=== PATIENT | female | born 1980 | race African-American/Black ===

== ENCOUNTER → 2018-01-24 15:08 | Outpatient (CLI) | payer OTHER, SELFPAY ==
[2018-01-24 15:40] LABS: Add Manual Diff / Slide Review NO; Basophils Percent Auto 1.2 % (0-2); Eosinophils Percent Auto 7.1 % (2-4); Hematocrit 36.5 % (36-46); Hemoglobin 12.1 g/dL (12.0-16.0); Lymphocytes Percent Auto 37.5 % (25-40); Mean Corpuscular Hemoglobin 28.4 PG (26-34); Monocytes Percent Auto 7.3 % (3-14); Neutrophils Absolute Auto 3100 /uL (3000-5900); Neutrophils Percent Auto 46.9 % (50-75); Platelet Count 257 X10^3/uL (150-400); Red Blood Cell Count 4.25 X10^6/uL (4.0-5.2); Red Cell Distribution Width 13.3 % (11.6-14.8); White Blood Cell Count 6.5 X10^3/uL (4.5-11.0)
== END ==
PROVIDERS: PCP Family Medicine; Visit Provider Family Medicine
DX: N97.9 Female infertility, unspecified (principal)
CPT/HCPCS: 36415; 85025

== ENCOUNTER → 2018-04-07 08:50 | Outpatient (CLI) | payer OTHER, SELFPAY ==
[2018-04-07 09:54] LABS: HCG Quantitative /Beta subunit 17.65 mIU/mL
== END ==
PROVIDERS: Family Provider Student in an Organized Health Care Education/Training Program; PCP Family Medicine; Visit Provider Specialist
DX: Z31.9 Encounter for procreative management, unspecified (principal)
CPT/HCPCS: 36415; 84702

== ENCOUNTER → 2018-04-09 12:27 | Outpatient (CLI) | payer OTHER, SELFPAY ==
[2018-04-09 13:34] LABS: HCG Quantitative /Beta subunit 20.92 mIU/mL
== END ==
PROVIDERS: Family Provider Student in an Organized Health Care Education/Training Program; PCP Family Medicine; Visit Provider Specialist
DX: Z31.9 Encounter for procreative management, unspecified (principal)
CPT/HCPCS: 36415; 84702

== ENCOUNTER → 2018-04-12 08:21 | Outpatient (CLI) | payer OTHER, SELFPAY ==
[2018-04-12 10:08] LABS: HCG Quantitative /Beta subunit 2.81 mIU/mL
== END ==
PROVIDERS: PCP Family Medicine; Visit Provider Specialist
DX: N91.2 Amenorrhea, unspecified (principal)
CPT/HCPCS: 84702

== ENCOUNTER → 2018-06-24 11:23 | Outpatient (CLI) | payer OTHER, SELFPAY ==
[2018-06-24 12:07] LABS: Add Manual Diff / Slide Review NO; Basophils Percent Auto 0.6 % (0-2); Eosinophils Percent Auto 5.3 % (2-4); Lymphocytes Percent Auto 27.7 % (25-40); Mean Corpuscular HGB Conc 32.5 % (30-36); Mean Corpuscular Hemoglobin 27.7 PG (26-34); Mean Corpuscular Volume 85.3 fL (80-100); Monocytes Percent Auto 5.5 % (3-14); Neutrophils Absolute Auto 3600 /uL (3000-5900); Neutrophils Percent Auto 60.9 % (50-75); Platelet Count 282 X10^3/uL (150-400); Red Blood Cell Count 4.34 X10^6/uL (4.0-5.2); Red Cell Distribution Width 13.3 % (11.6-14.8); White Blood Cell Count 5.9 X10^3/uL (4.5-11.0)
[2018-06-24 13:35] LABS: Prolactin 23.1 ng/mL (3.0-18.6)
[2018-06-24 15:29] LABS: Hepatitis B Surface Antigen NEGATIVE s/c (NEGATIVE)
[2018-06-24 15:46] LABS: HIV 1 and 2 Antibody NEGATIVE (NEGATIVE); Hep C Virus Ab w/Reflex Quant NEGATIVE s/c (NEGATIVE)
[2018-06-25 14:59] LABS: RPR Screen Nonreactive (Nonreactive)
[2018-06-28 16:56] LABS: B2-Glycoprotein I IgA AB < 9 SAU (< OR = 20); B2-Glycoprotein I IgG AB < 9 SGU (< OR = 20); B2-Glycoprotein I IgM AB < 9 SMU (< OR = 20); Cardiolipin Ab IgA < 11 APL; Cardiolipin Ab IgG < 14 GPL; Cardiolipin Ab IgM < 12 MPL; Phos. Serine AB IgM < 25 U/mL; dRVVT Screen 37 seconds (< OR = 45)
== END ==
PROVIDERS: PCP Family Medicine; Visit Provider Student in an Organized Health Care Education/Training Program
DX: Z11.59 Encounter for screening for other viral diseases (principal); Z13.29 Encounter for screening for other suspected endocrine disorder; Z11.3 Encounter for screening for infections with a predominantly sexual mode of transmission; Z00.00 Encounter for general adult medical examination without abnormal findings; Z31.41 Encounter for fertility testing
CPT/HCPCS: 36415; 82397; 83036; 84146; 84443; 85025; 85613; 86146; 86147; 86148; 86592; 86703; 86803; 87340

== ENCOUNTER → 2018-10-10 07:07 | Outpatient (CLI) | payer OTHER, SELFPAY ==
[2018-10-10 08:01] LABS: HCG Quantitative /Beta subunit 75.33 mIU/mL
== END ==
PROVIDERS: PCP Family Medicine; Visit Provider Student in an Organized Health Care Education/Training Program
DX: Z32.00 Encounter for pregnancy test, result unknown (principal)
CPT/HCPCS: 36415; 84702

== ENCOUNTER → 2018-10-12 07:07 | Outpatient (CLI) | payer OTHER, SELFPAY ==
[2018-10-12 08:01] LABS: HCG Quantitative /Beta subunit 72.48 mIU/mL
[2018-10-12 08:15] LABS: Thyroid Stimulating Hormone 2.01 uIU/mL (0.47-4.68)
== END ==
PROVIDERS: PCP Family Medicine; Visit Provider Student in an Organized Health Care Education/Training Program
DX: Z13.29 Encounter for screening for other suspected endocrine disorder (principal); Z32.00 Encounter for pregnancy test, result unknown; N97.9 Female infertility, unspecified
CPT/HCPCS: 36415; 84443; 84702

== ENCOUNTER → 2018-10-14 12:04 | Outpatient (CLI) | payer OTHER, SELFPAY ==
[2018-10-14 12:57] LABS: HCG Quantitative /Beta subunit 88.27 mIU/mL
== END ==
PROVIDERS: PCP Family Medicine; Visit Provider Student in an Organized Health Care Education/Training Program
DX: Z32.00 Encounter for pregnancy test, result unknown (principal)
CPT/HCPCS: 36415; 84702

== ENCOUNTER → 2018-10-17 07:14 | Outpatient (CLI) | payer OTHER, SELFPAY ==
[2018-10-17 07:58] LABS: HCG Quantitative /Beta subunit 284.94 mIU/mL
== END ==
PROVIDERS: PCP Family Medicine; Visit Provider Student in an Organized Health Care Education/Training Program
DX: Z32.00 Encounter for pregnancy test, result unknown (principal)
CPT/HCPCS: 36415; 84702

== ENCOUNTER → 2018-10-19 17:29 | Outpatient (CLI) | payer OTHER, SELFPAY ==
[2018-10-19 18:14] LABS: HCG Quantitative /Beta subunit 700.35 mIU/mL
== END ==
PROVIDERS: Family Provider Specialist; PCP Family Medicine; Visit Provider Student in an Organized Health Care Education/Training Program
DX: Z32.00 Encounter for pregnancy test, result unknown (principal)
CPT/HCPCS: 36415; 84702

== ENCOUNTER → 2018-10-27 12:34 | Outpatient (CLI) | payer OTHER, SELFPAY ==
[2018-10-27 13:19] LABS: HCG Quantitative /Beta subunit 2855.7 mIU/mL
== END ==
PROVIDERS: PCP Family Medicine; Visit Provider Specialist
DX: O00.90 Unspecified ectopic pregnancy without intrauterine pregnancy (principal)
CPT/HCPCS: 36415; 84702

== ENCOUNTER → 2018-11-04 13:20 | Outpatient (CLI) | payer OTHER, SELFPAY ==
[2018-11-04 13:46] LABS: Add Manual Diff / Slide Review NO; Basophils Absolute Auto 0 /uL (0-100); Basophils Percent Auto 0.6 % (0-2); Eosinophils Absolute Auto 300 /uL (0-450); Hematocrit 36.5 % (36-46); Hemoglobin 11.8 g/dL (12.0-16.0); Lymphocytes Absolute Auto 2200 /uL (1100-4500); Lymphocytes Percent Auto 25.9 % (25-40); Mean Corpuscular HGB Conc 32.2 % (30-36); Mean Corpuscular Hemoglobin 27.4 PG (26-34); Mean Corpuscular Volume 85.1 fL (80-100); Monocytes Absolute Auto 500 /uL (0-900); Monocytes Percent Auto 5.7 % (3-14); Neutrophils Absolute Auto 5500 /uL (1500-7000); Neutrophils Percent Auto 63.8 % (50-75); Platelet Count 320 X10^3/uL (150-400); Red Blood Cell Count 4.29 X10^6/uL (4.0-5.2); Red Cell Distribution Width 13.8 % (11.6-14.8); White Blood Cell Count 8.6 X10^3/uL (4.5-11.0)
[2018-11-04 14:05] LABS: Alanine Aminotransferase 21 IU/L (9-52); Albumin 4.7 g/dL (3.5-5.0); Albumin Globulin Ratio 1.5 (1.0-2.8); Alkaline Phosphatase 68 U/L (38-126); Aspartate Aminotransferase 18 IU/L (14-36); Bilirubin Total 0.4 mg/dL (0.2-1.3); Bilirubin Unconjugated 0.4 mg/dL (0.0-1.1); Globulin 3.2 g/dL (1.7-4.1); HEMOLYSIS < 15 (0-50); Total Protein 7.9 g/dL (6.3-8.2)
[2018-11-04 14:23] LABS: HCG Quantitative /Beta subunit 3195.9 mIU/mL
== END ==
PROVIDERS: PCP Family Medicine; Visit Provider Specialist
DX: O00.90 Unspecified ectopic pregnancy without intrauterine pregnancy (principal)
CPT/HCPCS: 36415; 80076; 84702; 85025

== ENCOUNTER → 2018-11-10 07:08 | Outpatient (CLI) | payer OTHER, SELFPAY ==
[2018-11-10 10:03] LABS: HCG Quantitative /Beta subunit 1377.4 mIU/mL
== END ==
PROVIDERS: PCP Family Medicine; Visit Provider Specialist
DX: O00.90 Unspecified ectopic pregnancy without intrauterine pregnancy (principal)
CPT/HCPCS: 36415; 84702

== ENCOUNTER → 2018-11-18 09:47 | Outpatient (CLI) | payer OTHER, SELFPAY ==
[2018-11-18 11:45] LABS: HCG Quantitative /Beta subunit 333.63 mIU/mL
== END ==
PROVIDERS: PCP Family Medicine; Visit Provider Specialist
DX: O00.90 Unspecified ectopic pregnancy without intrauterine pregnancy (principal)
CPT/HCPCS: 36415; 84702

== ENCOUNTER → 2018-12-02 12:01 | Outpatient (CLI) | payer OTHER, SELFPAY ==
[2018-12-02 13:14] LABS: HCG Quantitative /Beta subunit 171.47 mIU/mL
== END ==
PROVIDERS: PCP Family Medicine; Visit Provider Specialist
DX: O00.90 Unspecified ectopic pregnancy without intrauterine pregnancy (principal)
CPT/HCPCS: 36415; 84702

== ENCOUNTER → 2019-01-04 07:22 | Outpatient (CLI) | payer OTHER, SELFPAY ==
[2019-01-04 09:35] LABS: HCG Quantitative /Beta subunit 48.65 mIU/mL
[2019-01-04 09:39] LABS: Estimated Glomerular Filt Rate > 60.0 mL/min (>60)
[2019-01-04 09:42] LABS: Collection Time Urine 24 Hours; Creatinine Urine Random 157.6 mg/dL; Patient Height Urine 62 inches; Patient Weight Urine 172 lbs; Total Volume Urine 1000 mL
[2019-01-04 11:35] LABS: Creat Clearance, Corrected 132.5 mL/MIN; Creatinine Clearance Urine 136.8 mL/MIN
== END ==
PROVIDERS: PCP Family Medicine; Visit Provider Specialist
DX: O00.90 Unspecified ectopic pregnancy without intrauterine pregnancy (principal); O10.012 Pre-existing essential hypertension complicating pregnancy, second trimester
CPT/HCPCS: 36415; 82565; 82575; 84156; 84166; 84702

== ENCOUNTER → 2019-02-13 17:50 | Outpatient (CLI) | payer OTHER, SELFPAY | PROVIDERS: PCP Family Medicine; Visit Provider Specialist | DX: O03.9 Complete or unspecified spontaneous abortion without complication (principal) | CPT/HCPCS: 36415; 84702 ==

== ENCOUNTER 2019-04-05 16:30 | Emergency (ER) | payer OTHER, SELFPAY ==
[2019-04-05 16:38] VITALS: BP 180/99; PULSE 72; RESP 20; TEMP 37.2; O2SAT 99
--- NOTE | 2019-04-05 17:07 | ED_ITS ---
HPI - Allergic Reaction <WILFREDO Hodge - Last Filed: 04/05/19 20:54> General Chief complaint: Allergic Reaction Stated complaint: possible allergic reaction Time Seen by Provider: 04/05/19 17:02 Source: patient and family Mode of arrival: ambulatory Limitations: no limitations History of Present Illness HPI narrative: 38-year-old female with history of hypertension has a nonsmoker presents with a chief complaint have swelling of her right lower lip and chin. She states she woke up with this morning and applied ice. She states that this helped. After she stepped applying ice it got worse so she came to the emergency department. She has not taken any oral medications. The patient has no history of angioedema, is not taking any Ady inhibitors though she is on beta-blockers for hypertension. She denies any shortness of breath, wheezing, coughing, swelling of the mouth tongue. She states she might have been bit by something as she thinks there might be a bite maki underneath her lip. She denies any dental cleaning some dental issues. She denies any dental pain. Related Data Home Medications Medication Instructions Recorded Confirmed VIT #49/IRON FUM/FA (MINI 1 ea PO #0 09/04/16 10/27/18 TABLET) latanoprost 1 drp OPHTH HS #0 03/31/17 10/27/18 fluticasone propionate 1 spray INTRANASAL #0 11/09/17 10/27/18 Previous Rx's Medication Instructions Recorded albuterol sulfate 90 mcg/actuation 2 inhalation INHALATION Q4H PRN #1 12/23/18 aerosol inhaler inhalation labetalol 100 mg tablet See Rx Instructions PO BID #270 tab 12/23/18 levothyroxine 25 mcg tablet 25 mcg PO QAM #90 tab 12/23/18 phentermine 15 mg capsule 15 mg PO DAILY #30 cap 02/03/19 prednisone 50 mg PO DAILY #5 tab 04/05/19 Allergies Allergy/AdvReac Type Severity Reaction Status Date / Time aspirin [ASPIRIN] Allergy Unknown ulcer prob Verified 10/27/18 12:17 latex [LATEX] Allergy Unknown Verified 10/27/18 12:17 Penicillins [PENICILLINS] Allergy Unknown Verified 10/27/18 12:17 Review of Systems <WILFREDO Hodge - Last Filed: 04/05/19 20:54> Review of Systems Narrative: GENERAL: Denies chills, fatigue, malaise, fever, sweats. HEENT: See HPI RESPIRATORY: Denies dyspnea, cough, wheezing, hemoptysis, sputum. CARDIOVASCULAR: Denies chest pain, palpitations, orthopnea, edema, GASTROINTESTINAL: Denies nausea, vomiting, abdominal pain, diarrhea, constipation, melena. : Denies dysuria, frequency, incontinence, hematuria, urinary retention. MUSCULOSKELETAL: denies weakness, joint pain, or bony pain SKIN: D see HPI NEUROLOGIC: Denies weakness, headache, numbness, change in speech, confusion, seizures, incoordination. PSYCHIATRIC: No concerning psychosocial issues. 12 point review of systems is negative except for those stated above [facility] <WILFREDO Hodge - Last Filed: 04/05/19 20:54> Medical History History of anemia (Resolved) History of asthma (Chronic) History of bipolar disorder (Chronic) History of gastric ulcer (Resolved) History of glaucoma (Chronic) History of scoliosis (Chronic) History of seasonal allergies (Acute) Irritable bowel syndrome with constipation and diarrhea (Chronic) Personality disorder (Chronic) Shoulder pain (Resolved) Surgical History History of third molar tooth extraction (Resolved) Status post dilation and curettage (Resolved) Status post laparoscopy (Resolved) Family History Father Heart disease Hypertension Stroke Mother Age: 66 Anemia Grandmother Ovarian cancer Grandfather No problems noted. Grandmother Diabetes mellitus Grandfather No problems noted. Brother Diabetes mellitus Kidney failure Brother No problems noted. Brother No problems noted. Sister No problems noted. Sister No problems noted. Social History marital status: household members: spouse occupational status: employed Smoking Status: Former smoker alcohol intake: current substance use type: marijuana Family History Father Heart disease Hypertension Stroke Mother Age: 66 Anemia Grandmother Ovarian cancer Grandfather No problems noted. Grandmother Diabetes mellitus Grandfather No problems noted. Brother Diabetes mellitus Kidney failure Brother No problems noted. Brother No problems noted. Sister No problems noted. Sister No problems noted. Social History marital status: household members: spouse occupational status: employed Smoking Status: Former smoker alcohol intake: current substance use type: marijuana Exam <WILFREDO Hodge - Last Filed: 04/05/19 20:54> Narrative Exam Narrative: GENERAL: This is a well-nourished, well-developed patient, in no acute distress HEAD: Atraumatic. Normocephalic. No temporal or scalp tenderness. EYES: Pupils equal round and reactive. Extraocular motions intact. No scleral icterus. No injection or drainage. ENT: Nose without bleeding, purulent drainage or septal hematoma. Throat without erythema, tonsillar hypertrophy or exudate. Uvula midline. Airway patent. Slight swelling noted on right half of lower lip, radiating down to chin. NECK: Trachea midline. No JVD or lymphadenopathy. Supple, nontender, no meningeal signs. CARDIOVASCULAR: Regular rate and rhythm without murmurs, gallops, or rubs. RESPIRATORY: Clear to auscultation. Breath sounds equal bilaterally. No wheezes, rales, or rhonchi. No cough. No increased respiratory effort. No accessory muscle use. No stridor. No retractions. GASTROINTESTINAL: Abdomen soft, non-tender, nondistended. No hepato- splenomegaly, or palpable masses. No guarding. EXTREMITIES: No clubbing, cyanosis, or edema. No joint tenderness, effusion, or edema noted. BACK: Nontender without deformity or crepitance. No flank tenderness. NEURO: AOx3. SKIN: Small possible bite maki on distal aspect of right lower lip. No spreading erythema. No obvious exudate. No palpable abscess or fluctuance. Initial Vital Signs Initial Vital Signs: Vital Signs Temperature 99.0 F 04/05/19 16:38 Pulse Rate 72 04/05/19 16:38 Respiratory Rate 20 04/05/19 16:38 Blood Pressure 180/99 H 04/05/19 16:38 Pulse Oximetry 99 04/05/19 16:38 <Marcus Abel DO - Last Filed: 04/07/19 07:30> Initial Vital Signs Initial Vital Signs: Vital Signs Temperature 99.0 F 04/05/19 16:38 Pulse Rate 72 04/05/19 16:38 Respiratory Rate 20 04/05/19 16:38 Blood Pressure 180/99 H 04/05/19 16:38 Pulse Oximetry 99 04/05/19 16:38 Course <JONNY Hodge-BC - Last Filed: 04/05/19 20:54> Orders Ordered: Discontinued Medications Diphenhydramine HCl (Benadryl) 25 mg IV NOW ONE Stop: 04/05/19 17:23 Last Admin: 04/05/19 18:19 Dose: Not Given Documented by: NICOLE Diphenhydramine HCl (Benadryl) 50 mg IM NOW ONE Stop: 04/05/19 18:21 Last Admin: 04/05/19 18:27 Dose: 50 mg Documented by: NICOLE Methylprednisolone (Solu-Medrol 125 Mg Vial) 125 mg IV NOW ONE Stop: 04/05/19 17:23 Last Admin: 04/05/19 18:20 Dose: Not Given Documented by: NICOLE Methylprednisolone (Solu-Medrol 125 Mg Vial) 125 mg IM NOW ONE Stop: 04/05/19 18:21 Last Admin: 04/05/19 18:27 Dose: 125 mg Documented by: NICOLE Vital Signs Vital signs: Vital Signs - 8 hr 04/05/19 16:38 04/05/19 19:48 04/05/19 19:53 Temperature 99.0 F Pulse Rate 72 74 66 Respiratory Rate 20 14 18 Blood Pressure 180/99 H 108/63 Blood Pressure [Left Arm] 143/82 H Pulse Oximetry 99 100 100 <Marcus Abel DO - Last Filed: 04/07/19 07:30> Orders Ordered: Discontinued Medications Diphenhydramine HCl (Benadryl) 25 mg IV NOW ONE Stop: 04/05/19 17:23 Last Admin: 04/05/19 18:19 Dose: Not Given Documented by: NICOLE Diphenhydramine HCl (Benadryl) 50 mg IM NOW ONE Stop: 04/05/19 18:21 Last Admin: 04/05/19 18:27 Dose: 50 mg Documented by: NICOLE Methylprednisolone (Solu-Medrol 125 Mg Vial) 125 mg IV NOW ONE Stop: 04/05/19 17:23 Last Admin: 04/05/19 18:20 Dose: Not Given Documented by: NICOLE Methylprednisolone (Solu-Medrol 125 Mg Vial) 125 mg IM NOW ONE Stop: 04/05/19 18:21 Last Admin: 04/05/19 18:27 Dose: 125 mg Documented by: NICOLE Vital Signs Vital signs: Vital Signs - 8 hr 04/05/19 16:38 04/05/19 19:48 04/05/19 19:53 Temperature 99.0 F Pulse Rate 72 74 66 Respiratory Rate 20 14 18 Blood Pressure 180/99 H 108/63 Blood Pressure [Left Arm] 143/82 H Pulse Oximetry 99 100 100 MDM - Allergic Reaction <JONNY Hodge- - Last Filed: 04/05/19 20:54> MDM Narrative Medical decision making narrative: The patient is a 38-year-old female who comes in with a chief complaint of swelling of her right half of her lower lip that started this morning. She responded well initially to ice. Upon arrival to the emergency department she was in no acute respiratory distress. I did notice a possible bite maki distal to her right lip. She was given Benadryl and Solu- Medrol given the location of this bite maki and subsequent swelling. This improved her swelling greatly. The patient requested to leave. I did place her on a burst of steroids. Encouraged Benadryl use as needed and able. Discussed at length the importance of following up with her PCP. Discussed at length the importance of coming back to emergency department for any acute concerns such as shortness of breath, continued swelling of her lip despite treatment, swelling of her tongue or any acute shortness of breath concerns. Patient states understanding and has no questions or concerns. She states understanding of return precautions as well as follow-up care. Discharge Plan Departure Patient Disposition: Home Clinical Impression: Allergic reaction Qualifiers: Encounter type: initial encounter Qualified Code(s): T78.40XA - Allergy, unspecified, initial encounter Discharge Date/Time: 04/05/19 19:48 Instructions: DI for General Allergic Reactions Activity Restrictions/Additional Instructions: I believe that you had a localized reaction to the bite maki underneath your lip. I have given her a burst of steroids to help keep the swelling down. Please start this tomorrow as he already had steroids today.. I suggest continuing Benadryl and ice. Please come back to the emergency department for any acute concerns such as increased swelling, difficulty breathing swelling of her tongue. Please follow up with primary care provider. Prescriptions: New prednisone 50 mg tablet 50 mg PO DAILY Qty: 5 RF: 0 No Action phentermine 15 mg capsule 15 mg PO DAILY Qty: 30 RF: 1 labetalol 100 mg tablet See Rx Instructions PO BID Qty: 270 RF: 3 levothyroxine [Synthroid] 25 mcg tablet 25 mcg PO QAM Qty: 90 RF: 3 albuterol sulfate [Proventil HFA] 90 mcg/actuation HFA aerosol inhaler 2 inhalation Inhalation Q4H PRN (Reason: shortness of breath or wheezing) Qty: 1 RF: 3 VIT #49/IRON FUM/FA (MINI TABLET) 1 ea PO Qty: 0 RF: 0 latanoprost 0.005 % drops 1 drp OPHTH HS Qty: 0 RF: 0 fluticasone propionate 16 GM spray,suspension 1 spray Intranasal Qty: 0 RF: 0 Referrals: Dodie Maxwell DO [Primary Care Provider] -
--- NOTE | 2019-04-05 18:18 | PC.NURSE ---
Pt moved to room 12. Refusing IV request IM
[2019-04-05] MEDS: methylPREDNISolone 125 MG/2 ML VIAL IM (18:27)
[2019-04-05] MEDS: diphenhydrAMINE 50 MG/ML VIAL IM (18:27)
[2019-04-05 19:48] VITALS: BP 108/63; PULSE 74; RESP 14; O2SAT 100
[2019-04-05 19:53] VITALS: BP 143/82; PULSE 66; RESP 18; O2SAT 100
== END 2019-04-05 19:48 | disposition home or self-care (01) ==
PROVIDERS: Emergency Provider Nurse Practitioner Family; Family Provider Family Medicine; PCP Family Medicine
DX: T78.40XA Allergy, unspecified, initial encounter (principal)
CPT/HCPCS: 96372; 99283; J1200; J2930

== ENCOUNTER → 2019-05-25 07:25 | Outpatient (CLI) | payer OTHER, SELFPAY ==
[2019-05-25 09:29] LABS: Add Manual Diff / Slide Review NO; Basophils Absolute Auto 0 /uL (0-100); Basophils Percent Auto 0.7 % (0-2); Eosinophils Absolute Auto 700 /uL (0-450); Eosinophils Percent Auto 10.8 % (2-4); Hematocrit 36.7 % (36-46); Lymphocytes Absolute Auto 1400 /uL (1100-4500); Lymphocytes Percent Auto 22.2 % (25-40); Mean Corpuscular HGB Conc 32.7 % (30-36); Mean Corpuscular Hemoglobin 27.8 PG (26-34); Monocytes Absolute Auto 300 /uL (0-900); Monocytes Percent Auto 5.1 % (3-14); Neutrophils Absolute Auto 3700 /uL (1500-7000); Neutrophils Percent Auto 61.2 % (50-75); Platelet Count 254 X10^3/uL (150-400); Red Blood Cell Count 4.32 X10^6/uL (4.0-5.2); Red Cell Distribution Width 13.6 % (11.6-14.8); White Blood Cell Count 6.1 X10^3/uL (4.5-11.0)
[2019-05-25 10:04] LABS: Prothrombin Time 11.4 SECONDS (10.1-12.7)
[2019-05-25 10:06] LABS: PTT Partial Thromboplastin Tim 32 SECONDS (26.4-36.2)
[2019-05-25 10:24] LABS: Vitamin D 25 Hydroxy (D3) 35.7 ng/mL (30.0-100.0)
[2019-05-25 10:39] LABS: Thyroid Stimulating Hormone 1.18 uIU/mL (0.47-4.68)
[2019-05-25 10:52] LABS: Hepatitis B Surface Antigen NEGATIVE s/c (NEGATIVE); Rubella Antibody IgG 19.2 IU/mL (>15)
[2019-05-25 10:57] LABS: HIV 1 & 2 Ab/Ag 4th Gen Combo NEGATIVE (NEGATIVE); Hep C Virus Ab w/Reflex Quant NEGATIVE s/c (NEGATIVE)
[2019-05-27 15:19] LABS: Var-Zoster Immunity Screen > or = 1:4
[2019-05-27 19:27] LABS: RPR Screen Nonreactive (Nonreactive)
== END ==
PROVIDERS: PCP Family Medicine; Visit Provider Obstetrics & Gynecology Reproductive Endocrinology
DX: Z30.09 Encounter for other general counseling and advice on contraception (principal); Z11.9 Encounter for screening for infectious and parasitic diseases, unspecified
CPT/HCPCS: 36415; 82306; 82397; 84443; 85025; 85610; 85730; 86592; 86762; 86787; 86803; 86900; 86901; 87340; 87389

== ENCOUNTER → 2019-07-10 09:35 | Outpatient (CLI) | payer OTHER, SELFPAY ==
[2019-07-10 10:14] LABS: Influenza A - CEPHEID Flu A NEGATIVE (NEGATIVE); Influenza B - CEPHEID Flu B NEGATIVE (NEGATIVE)
== END ==
PROVIDERS: PCP Family Medicine; Visit Provider Physician Assistant
DX: R68.89 Other general symptoms and signs (principal)
CPT/HCPCS: 87502

== ENCOUNTER → 2020-03-26 08:31 | Outpatient (CLI) | payer OTHER, SELFPAY ==
[2020-03-26 09:39] LABS: Add Manual Diff / Slide Review NO; Basophils Absolute Auto 0 /uL (0-100); Basophils Percent Auto 0.5 % (0-2); Eosinophils Absolute Auto 700 /uL (0-450); Hematocrit 37.6 % (36-46); Hemoglobin 12.6 g/dL (12.0-16.0); Lymphocytes Absolute Auto 2500 /uL (1100-4500); Lymphocytes Percent Auto 31.5 % (25-40); Mean Corpuscular HGB Conc 33.3 % (30-36); Mean Corpuscular Hemoglobin 28.1 PG (26-34); Mean Corpuscular Volume 84.4 fL (80-100); Monocytes Absolute Auto 400 /uL (0-900); Monocytes Percent Auto 4.9 % (3-14); Neutrophils Absolute Auto 4300 /uL (1500-7000); Neutrophils Percent Auto 54.1 % (50-75); Platelet Count 273 X10^3/uL (150-400); Red Blood Cell Count 4.46 X10^6/uL (4.0-5.2); Red Cell Distribution Width 13.9 % (11.6-14.8); White Blood Cell Count 7.9 X10^3/uL (4.5-11.0)
[2020-03-26 10:21] LABS: Alanine Aminotransferase 15 IU/L (<35); Albumin 4.6 g/dL (3.5-5.0); Albumin Globulin Ratio 1.3 (1.0-2.8); Alkaline Phosphatase 99 U/L (38-126); Aspartate Aminotransferase 23 IU/L (14-36); BUN Creatinine Ratio 11.3 (6-22); Bilirubin Total 0.4 mg/dL (0.2-1.3); Blood Urea Nitrogen 9 mg/dL (7-17); Calcium 9.5 mg/dL (8.4-10.2); Carbon Dioxide 26 mmol/L (22-32); Chloride 105 mmol/L (98-107); Cholesterol 260 mg/dL (140-199); Estimated Glomerular Filt Rate > 60.0 mL/min (>60); Globulin 3.5 g/dL (1.7-4.1); Glucose 108 mg/dL (70-100); HDL Cholesterol 62 mg/dL (40-60); HEMOLYSIS < 15 (0-50); LDL Cholesterol Calculated 178 mg/dL (<100); Potassium 4.5 mmol/L (3.4-5.1); Sodium 137 mmol/L (137-145); Total Protein 8.1 g/dL (6.3-8.2); Triglycerides 99 mg/dL (35-150)
[2020-03-26 10:49] LABS: Thyroid Stimulating Hormone 3.54 uIU/mL (0.47-4.68)
[2020-03-26 11:04] LABS: Microalbumin Urine Random < 0.6 mg/dL (0-1.6)
== END ==
PROVIDERS: PCP Family Medicine; Referring Provider Family Medicine; Visit Provider Family Medicine
DX: Z13.220 Encounter for screening for lipoid disorders (principal); E03.9 Hypothyroidism, unspecified; I10 Essential (primary) hypertension
CPT/HCPCS: 36415; 80053; 80061; 82043; 82570; 84443; 85025

== ENCOUNTER → 2020-04-20 15:04 | Outpatient (CLI) | payer OTHER, SELFPAY ==
--- NOTE | 2020-04-20 15:05 | DI.MG.S_ITS ---
BILATERAL DIGITAL SCREENING MAMMOGRAM 3D/2D WITH CAD: 04/20/2020 CLINICAL: Routine screening. Comparison is made to exams dated: 09/13/2014 mammogram and 08/27/2014 mammogram - [facility]. There are scattered fibroglandular elements in both breasts. Current study was also evaluated with a Computer Aided Detection (CAD) system. No significant masses, calcifications, or other findings are seen in either breast. There has been no significant interval change. IMPRESSION: NEGATIVE There is no mammographic evidence of malignancy. A 1 year screening mammogram is recommended. This exam was interpreted at Station ID: [id number]. NOTE: For mammograms, a report in lay terms will be sent to the patient. Approximately 15% of breast malignancies will not be visualized mammographically. In the management of a palpable breast mass, a negative mammogram must not discourage biopsy of a clinically suspicious lesion. Electronically Signed By: Edu savage/genoveva:04/22/2020 10:03:58 letter sent: Normal Exam ACR BI-RADS Category 1: Negative [id number]
--- NOTE | 2020-04-20 15:06 | DI.RAD.S_ITS ---
PROCEDURE: XR CHEST 2V INDICATIONS: Asthma TECHNIQUE: 2 views of the chest were acquired. COMPARISON: None. FINDINGS: Surgical changes and devices: None. Lungs and pleura: Lungs are clear. No pleural effusions or pneumothorax. Mediastinum: Mediastinal contours are normal. Heart size is normal. Bones and chest wall: No suspicious bony abnormalities. Soft tissues appear unremarkable. IMPRESSION: No acute cardiopulmonary abnormality. Dictated by: Reynaldo Finley M.D. on 04/20/2020 at 16:20 Approved by: Reynaldo Finley M.D. on 04/20/2020 at 16:21
== END ==
PROVIDERS: PCP Family Medicine; Referring Provider Family Medicine; Visit Provider Family Medicine
DX: Z12.31 Encounter for screening mammogram for malignant neoplasm of breast (principal); J45.909 Unspecified asthma, uncomplicated
CPT/HCPCS: 71046; 77063; 77067

== ENCOUNTER → 2020-06-26 07:56 | Outpatient (CLI) | payer OTHER, SELFPAY ==
[2020-06-26 08:41] LABS: BUN Creatinine Ratio 23.9 (6-22); Blood Urea Nitrogen 16 mg/dL (7-17); Calcium 9.6 mg/dL (8.4-10.2); Carbon Dioxide 23 mmol/L (22-32); Chloride 105 mmol/L (98-107); Estimated Glomerular Filt Rate > 60.0 mL/min (>60); Glucose 127 mg/dL (70-100); HEMOLYSIS < 15 (0-50); Potassium 4.1 mmol/L (3.4-5.1); Sodium 135 mmol/L (137-145)
[2020-06-26 09:22] LABS: TSH w/ Reflex to FT4 0.87 uIU/mL (0.47-4.68)
== END ==
PROVIDERS: PCP Family Medicine; Referring Provider Family Medicine; Visit Provider Family Medicine
DX: E03.9 Hypothyroidism, unspecified (principal); R73.9 Hyperglycemia, unspecified
CPT/HCPCS: 36415; 80048; 84443

== ENCOUNTER → 2020-06-28 09:10 | Outpatient (CLI) | payer OTHER, SELFPAY ==
[2020-06-28 10:00] LABS: Hemoglobin A1C% w Est Avg Glu 5.2 % (4.0-6.0)
== END ==
PROVIDERS: PCP Family Medicine; Referring Provider Family Medicine; Visit Provider Family Medicine
DX: R73.9 Hyperglycemia, unspecified (principal)
CPT/HCPCS: 36415; 83036

== ENCOUNTER → 2020-10-04 09:17 | Outpatient (CLI) | payer OTHER, SELFPAY ==
[2020-10-04] MEDS: COVID-19 VACC #1, MRNA(MOD) 100 MCG/0.5 ML VIAL IM (09:23)
== END ==
PROVIDERS: PCP Family Medicine; Visit Provider Internal Medicine
DX: Z23 Encounter for immunization (principal)
CPT/HCPCS: 0011A; 91301

== ENCOUNTER → 2020-11-01 09:02 | Outpatient (CLI) | payer OTHER, SELFPAY ==
[2020-11-01] MEDS: COVID-19 VACC #2, MRNA(MOD) 100 MCG/0.5 ML VIAL IM (09:08)
== END ==
PROVIDERS: PCP Family Medicine; Visit Provider Internal Medicine
DX: Z23 Encounter for immunization (principal)
CPT/HCPCS: 0012A; 91301

== ENCOUNTER → 2020-11-09 15:07 | Outpatient (CLI) | payer OTHER, SELFPAY ==
--- NOTE | 2020-11-09 15:08 | DI.MRI.S_ITS ---
PROCEDURE: MR CERVICAL SPINE WO CON INDICATIONS: Radiculopathy, cervical region TECHNIQUE: Noncontrast sagittal T1 spin echo and T2 fast spin echo, sagittal STIR, foraminal oblique sagittal T2 fast spin echo, and axial gradient echo or T2 fast spin echo through the cervical spine. COMPARISON: None. FINDINGS: Image quality: Excellent. Alignment and Curvature: Straightening of the usual cervical lordosis. Otherwise normal alignment. Normal configuration of the craniocervical junction. Vertebral body heights maintained. Bone Marrow: No suspicious focal marrow signal abnormality or bone marrow edema. Spinal Cord: Normal morphology and signal intensity of the cervical cord. There is no syrinx. No inferior cerebellar tonsillar herniation. Regional Soft Tissues: No paravertebral masses. Prevertebral soft tissues are normal in thickness. C2-C3: No spinal canal or neural foraminal stenosis. C3-C4: Uncovertebral spurring contributes to mild neural foraminal narrowing on the right. No spinal canal stenosis or neural foraminal narrowing on the left. C4-C5: Facet and uncovertebral hypertrophy produce mild bilateral neural foraminal narrowing. No spinal canal stenosis. C5-C6: Facet and uncovertebral hypertrophy produce moderate bilateral neural foraminal narrowing. No spinal canal stenosis. C6-C7: No spinal canal or neural foraminal stenosis. C7-T1: No spinal canal or neural foraminal stenosis. IMPRESSION: Facet and uncovertebral hypertrophy produce varying degrees of neural foraminal narrowing, moderate bilaterally at C5-C6. Dictated by: Ubaldo Jaramillo M.D. on 11/11/2020 at 9:36 Approved by: Ubaldo Jaramillo M.D. on 11/11/2020 at 9:44
== END ==
PROVIDERS: PCP Family Medicine; Referring Provider Orthopaedic Surgery; Visit Provider Orthopaedic Surgery
DX: M54.12 Radiculopathy, cervical region (principal); M48.02 Spinal stenosis, cervical region
CPT/HCPCS: 72141

== ENCOUNTER → 2021-06-25 09:24 | Outpatient (CLI) | payer OTHER, SELFPAY ==
[2021-06-25 13:04] LABS: COVID19 -Nasal RAPID Negative (Negative)
== END ==
PROVIDERS: PCP Family Medicine; Referring Provider Physician Assistant; Visit Provider Physician Assistant
DX: Z20.822 Contact with and (suspected) exposure to COVID-19 (principal)
CPT/HCPCS: 87635

== ENCOUNTER 2021-06-26 11:05 | Day surgery (SDC) | payer OTHER, SELFPAY ==
[2021-06-23 14:53] VITALS: BMI 25.6
[2021-06-26] VITALS (8 sets, daily range): BP systolic 102–166; BP diastolic 65–89; PULSE 60–79; RESP 14–18; TEMP 36.7–36.9; O2SAT 98–100; BMI 25.6
[2021-06-26] MEDS: LACTATED RINGERS 1,000 ML 84 ML IV (11:54)
--- NOTE | 2021-06-26 12:14 | PM.HP.1 ---
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 Patient History Medical History History of anemia History of asthma History of bipolar disorder History of gastric ulcer History of glaucoma History of scoliosis History of seasonal allergies Irritable bowel syndrome with constipation and diarrhea Personality disorder Shoulder pain Surgical History History of third molar tooth extraction Status post dilation and curettage Status post laparoscopy Family & Social History Family History Father Heart disease Hypertension Stroke Mother Age: 68 Anemia Grandmother Ovarian cancer Grandfather No problems noted. Grandmother Diabetes mellitus Grandfather No problems noted. Brother Diabetes mellitus Kidney failure Brother No problems noted. Brother No problems noted. Sister No problems noted. Sister No problems noted. Social History: household members spouse Tobacco & Substance use: Tobacco type cigarettes Smoking Status Former smoker alcohol intake current Substance Use Type marijuana Meds Home Medications and Allergies Home Medications Medication Instructions Recorded Confirmed Type latanoprost 0.005 % eye drops 1 palomo [facility] HS #0 03/31/17 06/26/21 History labetalol 100 mg tablet 200 mg PO BID #360 tab 03/29/20 06/26/21 Rx levothyroxine 50 mcg tablet 50 mcg PO QAM #90 tab 10/18/20 06/26/21 Rx albuterol sulfate 90 mcg/actuation 2 puff INHALATION Q6H PRN #18 g 06/26/21 Rx aerosol inhaler (ProAir HFA) fluticasone propionate 220 2 puff INHALATION BID #12 gram 06/26/21 Rx mcg/actuation HFA aerosol inhaler (Flovent HFA) Allergies Allergy/AdvReac Type Severity Reaction Status Date / Time latex [LATEX] Allergy Mild Rash, Verified 06/26/21 11:30 hives, itching Penicillins [PENICILLINS] Allergy Mild Rash, Verified 06/26/21 11:30 hives, itching aspirin [ASPIRIN] AdvReac Intermediate GI Verified 06/26/21 11:30 Distress, pain tramadol AdvReac Intermediate Shortness Verified 06/26/21 11:30 of Breath Exam Vital Signs (past 8 hours): - 06/26/21 11:33 Temperature 98.4 F Pulse Rate 64 Respiratory Rate 15 Blood Pressure 136/82 Pulse Oximetry 99 Oxygen Delivery Method Room Air Narrative Exam Narrative: Significant instability to the right thumb MCP joint ulnar collateral ligament. Normal stability to the radial collateral ligament. Patient still has full flexion and extension at the MCP joint and normal range of motion at the basal joint with no sign of any basal joint arthritic changes. 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 Due to this patient is interested in reconstruction of the ulnar collateral ligament. Patient understands the risks and potential limitations in regards to surgery. All of her questions and concerns were answered to her full satisfaction. The risk, benefits, alternatives, possible complications, operative course, and postop outcomes were discussed. Complications including but not limiting to bleeding, infection, fracture, nerve injury, continued pain postoperatively or instability postoperatively were discussed in detail. Medical complications including but not limited to deep venous thrombosis event, anesthesia complications with excessive bleeding, vascular events or cardiac events and other possible complications were discussed in detail. Need for postoperative rehabilitation and anticipated hospital stay and clinical course were discussed in detail. Patient acknowledges understanding and elects to proceed with surgery. Time Spent With Patient Critical Care time: I spent a total of [] minutes of critical care time on this patient's care today; this time is exclusive of procedural time.
--- NOTE | 2021-06-26 12:16 | PM.PREOP ---
Pre-operative Note Interval Note History & Physical reviewed/Exam performed by Physician: Yes Changes to H&P: No
[2021-06-26] MEDS: CEFAZOLIN 2 GM/20 ML SYRINGE IV (13:08)
--- NOTE | 2021-06-26 13:21 | SUR.OPER ---
Supine on padded OR bed, head on pillow, left arm secured on padded arm boards at <90 degrees abduction, right arm draped free on black hand table legs uncrossed, safety belt at thigh, tape over blanket over lower legs.
[2021-06-26] MEDS: BUPIVACAINE 0.5% (PF) 30 ML, EPINEPHrine 0.15 MG INJ (13:35)
--- NOTE | 2021-06-26 14:24 | P.OP_ITS ---
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 No sign of any significant arthritic changes to the glenohumeral joint. Closure Type: primary Applied: implant(s) (Two Arthrex tenodesis anchors) Estimated Blood Loss (mL): 0 Blood products transfused: none Tourniquet time (min): 57 Procedure in detail: On date of Service, patient was met in the holding area where his operative site was signed and witnessed by the OR staff. The surgery is once again discussed with the patient in remaining questions or concerns he had were answered to his full satisfaction. Patient was taken back to the operating theater and placed on the operating table in a supine position. Great care was taken to ensure that all bony prominences were appropriately padded. Well-padded tourniquet was placed up along the upper extremity and a time-out was performed verifying patient's name, procedure and operative site. The upper extremity was prepped and draped in the normal sterile fashion. And Esmarch was used to exsanguinate the limb and the tourniquet was turned up to 250 mmHg. Curvilinear incision was made centered over the ulnar aspect of the MCP joint. A 15 blade was used incise the skin and fascial tissue. Bipolar electrocautery was used to achieve hemostasis. Deep knife was then used to continued sharp dissection and the aponeurosis was split giving us a good visualization of the ulnar collateral ligament. No real signs of any healthy ulnar collateral ligament tissue to use for any reliable repair. Signs of some pseudo tendinous material. This was sharply dissected free of the proximal phalanx in the thinner more unhealthy tissue was sharply excised. Due to the lack of any ulnar collateral ligament tissue, a autograft was used. Small incision was made at the wrist crease and the palmaris longus was exposed. A 2nd small incision was made mid forearm finding palmaris longus again. Palmaris longus was excised at the proximal incision pulled through the distal incision and then released there giving us quite a bit tendon material for the ulnar co llateral ligament reconstruction. Two drill holes were made 1 in the proximal phalanx 1 in the metacarpal. Suture material as well as the tendon graft was tenodesed 1st in the metacarpal brought across the joint and then tenodesed in the proximal phalanx under tension. This help reconstruct the ulnar collateral ligament and the suture material added a additional stability. This got rid of the excess laxity to the MCP joint and help stabilize the joint. The wound was then copiously irrigated. Aponeurosis was closed in the rest of the wound was closed in a layered fashion. The hand was cleaned, dried, and dressed and patient was placed into a splint. Complications: none Post-operative Condition: stable Disposition: PACU Plan for aftercare: Patient will be converted over to a hand based splint that will just immobilize the MCP joint. MCP joint will need to be protected for 6 weeks.
== END 2021-06-26 15:05 | disposition home or self-care (01) ==
PROVIDERS: PCP Family Medicine; Referring Provider Orthopaedic Surgery; Visit Provider Orthopaedic Surgery
PROC: (CPT 26540; principal; 2021-06-26 12:30)
DX: S53.31XA Traumatic rupture of right ulnar collateral ligament, initial encounter (principal); I10 Essential (primary) hypertension; E03.9 Hypothyroidism, unspecified; J45.909 Unspecified asthma, uncomplicated
CPT/HCPCS: 26541; J0171; J0690; J1100; J1885; J2250; J2405; J2704; J3010

== ENCOUNTER → 2021-09-08 13:59 | Outpatient (CLI) | payer OTHER, SELFPAY ==
[2021-09-08 16:21] LABS: COVID-19 CEPHEID PCR (VTM/NP) Negative (Negative)
== END ==
PROVIDERS: PCP Family Medicine; Visit Provider Family Medicine Sleep Medicine
DX: Z20.822 Contact with and (suspected) exposure to COVID-19 (principal)
CPT/HCPCS: C9803; U0003; U0005

== ENCOUNTER → 2022-02-03 16:31 | Outpatient (CLI) | payer OTHER, SELFPAY ==
[2022-02-03 17:33] LABS: Add Manual Diff / Slide Review NO; Basophils Absolute Auto 0 /uL (0-100); Basophils Percent Auto 0.7 % (0-2); Eosinophils Absolute Auto 400 /uL (0-450); Eosinophils Percent Auto 8.7 % (2-4); Hemoglobin 12.7 g/dL (12.0-16.0); Lymphocytes Absolute Auto 1800 /uL (1100-4500); Mean Corpuscular HGB Conc 33.5 % (30-36); Mean Corpuscular Hemoglobin 28.7 PG (26-34); Mean Corpuscular Volume 85.6 fL (80-100); Monocytes Absolute Auto 200 /uL (0-900); Monocytes Percent Auto 4.7 % (3-14); Neutrophils Absolute Auto 2300 /uL (1500-7000); Neutrophils Percent Auto 47.9 % (50-75); Platelet Count 270 X10^3/uL (150-400); Red Blood Cell Count 4.44 X10^6/uL (4.0-5.2); Red Cell Distribution Width 12.9 % (11.6-14.8); White Blood Cell Count 4.8 X10^3/uL (4.5-11.0)
[2022-02-03 18:38] LABS: Alanine Aminotransferase 13 IU/L (<35); Albumin 5.1 g/dL (3.5-5.0); Albumin Globulin Ratio 1.4 (1.0-2.8); Alkaline Phosphatase 82 U/L (38-126); Aspartate Aminotransferase 32 IU/L (14-36); BUN Creatinine Ratio 14.1 (6-22); Bilirubin Total 0.6 mg/dL (0.2-1.3); Blood Urea Nitrogen 11 mg/dL (7-17); Calcium 9.2 mg/dL (8.4-10.2); Carbon Dioxide 30 mmol/L (22-32); Chloride 100 mmol/L (98-107); Cholesterol 285 mg/dL (140-199); Estimated Glomerular Filt Rate > 60 mL/min (>60); Globulin 3.7 g/dL (1.7-4.1); Glucose 100 mg/dL (70-100); HDL Cholesterol 56 mg/dL (40-60); HEMOLYSIS 48 (0-50); LDL Cholesterol Calculated 216 mg/dL (<100); Potassium 4.4 mmol/L (3.4-5.1); Sodium 137 mmol/L (137-145); Total Protein 8.8 g/dL (6.3-8.2); Triglycerides 65 mg/dL (35-150)
[2022-02-03 18:53] LABS: TSH w/ Reflex to FT4 1.39 uIU/mL (0.47-4.68)
== END ==
PROVIDERS: PCP Family Medicine; Referring Provider Family Medicine; Visit Provider Family Medicine
DX: E03.9 Hypothyroidism, unspecified (principal); J45.20 Mild intermittent asthma, uncomplicated; I10 Essential (primary) hypertension; E78.5 Hyperlipidemia, unspecified
CPT/HCPCS: 36415; 80053; 80061; 84443; 85025

== ENCOUNTER → 2022-03-06 14:13 | Outpatient (CLI) | payer OTHER, SELFPAY ==
--- NOTE | 2022-03-06 | DI.MG.S_ITS ---
BILATERAL DIGITAL SCREENING MAMMOGRAM 3D/2D WITH CAD WITH AUGMENTATION: 03/06/2022 CLINICAL: Patient presents for routine screening. S/P bilateral augmentation. Comparison is made to exams dated: 09/13/2014 mammogram - [facility], 04/20/2020 mammogram - [facility], and 08/27/2014 mammogram - [facility]. There are scattered fibroglandular elements in both breasts. Current study was also evaluated with a Computer Aided Detection (CAD) system. Bilateral breast implants are present. There are benign post operative findings in both breasts. No significant masses, calcifications, or other findings are seen in either breast. IMPRESSION: BENIGN There is no mammographic evidence of malignancy. A 1 year screening mammogram is recommended. Based on the Tyrer Cuzick model (a risk assessment model) the patient's lifetime risk is 10.9% and her 10 year risk is 1.6%. According to the ACR, ACS, and NCCN guidelines, an annual breast MRI exam along with mammogram is recommended if the patient's lifetime risk is 20% or greater. This exam was interpreted at Station ID: [id number]. NOTE: For mammograms, a report in lay terms will be sent to the patient. Approximately 15% of breast malignancies will not be visualized mammographically. In the management of a palpable breast mass, a negative mammogram must not discourage biopsy of a clinically suspicious lesion. Electronically Signed By: Long neves/genoveva:03/09/2022 15:21:10 letter sent: Normal Exam ACR BI-RADS Category 2: Benign Finding(s) 3342F
== END ==
PROVIDERS: PCP Family Medicine; Referring Provider Family Medicine; Visit Provider Family Medicine
DX: Z12.31 Encounter for screening mammogram for malignant neoplasm of breast (principal); Z98.82 Breast implant status
CPT/HCPCS: 77063; 77067

== ENCOUNTER → 2022-08-06 15:15 | Outpatient (CLI) | payer OTHER, SELFPAY ==
[2022-08-06 16:56] LABS: Erythrocyte Sedimentation Rate 31 MM/HR (0-20)
[2022-08-06 17:57] LABS: Free T4, Direct Thyroxine 1.21 ng/dL (0.78-2.19); Triiodothryronine T3 Uptake 30.3 % (23.5-40.5)
[2022-08-06 18:15] LABS: Ferritin 46 ng/mL (6-137)
[2022-08-06 18:42] LABS: Thyroid Stimulating Hormone 2.77 uIU/mL (0.47-4.68)
[2022-08-06 19:28] LABS: Vitamin D 25 Hydroxy (D3) 23.7 ng/mL (30.0-100.0)
[2022-08-12 15:11] LABS: ANA Screen, IFA Negative (.)
== END ==
PROVIDERS: PCP Family Medicine; Referring Provider Physician Assistant Medical; Visit Provider Physician Assistant Medical
DX: L65.9 Nonscarring hair loss, unspecified (principal)
CPT/HCPCS: 36415; 82306; 82728; 84439; 84443; 84479; 85651; 86038

== ENCOUNTER → 2022-11-13 07:17 | Outpatient (CLI) | payer OTHER, SELFPAY ==
[2022-11-13 09:16] LABS: Add Manual Diff / Slide Review NO; Basophils Absolute Auto 0 /uL (0-100); Basophils Percent Auto 0.8 % (0-2); Eosinophils Absolute Auto 500 /uL (0-450); Eosinophils Percent Auto 8.5 % (2-4); Hemoglobin 11.6 g/dL (12.0-16.0); Lymphocytes Absolute Auto 1800 /uL (1100-4500); Mean Corpuscular HGB Conc 33.1 % (30-36); Mean Corpuscular Hemoglobin 28.1 PG (26-34); Mean Corpuscular Volume 84.8 fL (80-100); Monocytes Absolute Auto 400 /uL (0-900); Monocytes Percent Auto 5.8 % (3-14); Neutrophils Absolute Auto 3500 /uL (1500-7000); Neutrophils Percent Auto 55.9 % (50-75); Platelet Count 270 X10^3/uL (150-400); Red Blood Cell Count 4.13 X10^6/uL (4.0-5.2); White Blood Cell Count 6.2 X10^3/uL (4.5-11.0)
[2022-11-13 09:38] LABS: Erythrocyte Sedimentation Rate 30 MM/HR (0-20)
[2022-11-13 10:18] LABS: Alanine Aminotransferase 14 IU/L (<35); Albumin 4.4 g/dL (3.5-5.0); Albumin Globulin Ratio 1.5 (1.0-2.8); Alkaline Phosphatase 65 U/L (38-126); Aspartate Aminotransferase 19 IU/L (14-36); BUN Creatinine Ratio 18.4 (6-22); Bilirubin Total 0.5 mg/dL (0.2-1.3); Blood Urea Nitrogen 14 mg/dL (7-17); Calcium 8.9 mg/dL (8.4-10.2); Carbon Dioxide 29 mmol/L (22-32); Chloride 101 mmol/L (98-107); Cholesterol 250 mg/dL (140-199); Estimated Glomerular Filt Rate > 60 mL/min (>60); Globulin 2.9 g/dL (1.7-4.1); Glucose 104 mg/dL (70-100); HDL Cholesterol 52 mg/dL (40-60); HEMOLYSIS < 15 (0-50); LDL Cholesterol Calculated 185 mg/dL (<100); Potassium 4.3 mmol/L (3.4-5.1); Sodium 137 mmol/L (137-145); Total Protein 7.3 g/dL (6.3-8.2); Triglycerides 66 mg/dL (35-150)
== END ==
PROVIDERS: PCP Family Medicine; Referring Provider Physician Assistant; Visit Provider Physician Assistant
DX: E03.9 Hypothyroidism, unspecified (principal); I10 Essential (primary) hypertension; L65.9 Nonscarring hair loss, unspecified; E78.5 Hyperlipidemia, unspecified
CPT/HCPCS: 36415; 80053; 80061; 85025; 85651

== ENCOUNTER → 2023-05-04 09:22 | Outpatient (CLI) | payer OTHER, SELFPAY ==
[2023-05-04 10:15] LABS: Add Manual Diff / Slide Review YES; Hematocrit 36.1 % (36-46); Hemoglobin 12.1 g/dL (12.0-16.0); Mean Corpuscular HGB Conc 33.4 % (30-36); Mean Corpuscular Volume 83.7 fL (80-100); Platelet Count 254 X10^3/uL (150-400); Red Blood Cell Count 4.32 X10^6/uL (4.0-5.2); Red Cell Distribution Width 13.1 % (11.6-14.8); White Blood Cell Count 7.6 X10^3/uL (4.5-11.0)
[2023-05-04 10:43] LABS: Neutrophils Absolute Manual 4332 /uL (3000-5900); RBC Morphology Normal Morphology; Total Cells Counted 100
[2023-05-04 11:19] LABS: Prolactin 22.2 ng/mL (3.0-18.6)
[2023-05-04 11:22] LABS: Follicle Stimulating Hormone 1.73 mIU/mL
[2023-05-04 11:34] LABS: TSH w/ Reflex to FT4 1.17 uIU/mL (0.47-4.68)
== END ==
PROVIDERS: PCP Student in an Organized Health Care Education/Training Program; Referring Provider Student in an Organized Health Care Education/Training Program; Visit Provider Student in an Organized Health Care Education/Training Program
DX: E03.9 Hypothyroidism, unspecified (principal); R23.2 Flushing; R59.1 Generalized enlarged lymph nodes
CPT/HCPCS: 36415; 83001; 84146; 84443; 85007; 85025

== ENCOUNTER → 2023-05-10 10:09 | Outpatient (CLI) | payer OTHER, SELFPAY ==
[2023-05-10 11:26] LABS: Hemoglobin 10.9 g/dL (12.0-16.0); Mean Corpuscular HGB Conc 33.1 % (30-36); Mean Corpuscular Hemoglobin 27.8 PG (26-34); Mean Corpuscular Volume 83.8 fL (80-100); Platelet Count 249 X10^3/uL (150-400); Red Blood Cell Count 3.94 X10^6/uL (4.0-5.2); Red Cell Distribution Width 13.2 % (11.6-14.8)
[2023-05-10 11:30] LABS: HEMOLYSIS < 15 (0-50)
[2023-05-10 11:35] LABS: Alanine Aminotransferase 12 IU/L (<35); Albumin 4.3 g/dL (3.5-5.0); Albumin Globulin Ratio 1.3 (1.0-2.8); Alkaline Phosphatase 67 U/L (38-126); Aspartate Aminotransferase 18 IU/L (14-36); BUN Creatinine Ratio 16.7 (6-22); Bilirubin Total 0.4 mg/dL (0.2-1.3); Blood Urea Nitrogen 13 mg/dL (7-17); Calcium 9.5 mg/dL (8.4-10.2); Carbon Dioxide 26 mmol/L (22-32); Chloride 99 mmol/L (98-107); Estimated Glomerular Filt Rate > 60 mL/min (>60); Globulin 3.3 g/dL (1.7-4.1); Glucose 112 mg/dL (70-100); Potassium 4.5 mmol/L (3.4-5.1); Sodium 135 mmol/L (137-145); Total Protein 7.6 g/dL (6.3-8.2)
[2023-05-10 12:25] LABS: Prolactin 28.5 ng/mL (3.0-18.6)
[2023-05-10 13:19] LABS: Neutrophils Absolute Manual 4550 /uL (3000-5900); Total Cells Counted 100
[2023-05-10 13:20] LABS: RBC Morphology Normal Morphology
== END ==
PROVIDERS: PCP Student in an Organized Health Care Education/Training Program; Referring Provider Student in an Organized Health Care Education/Training Program; Visit Provider Student in an Organized Health Care Education/Training Program
DX: D72.10 Eosinophilia, unspecified (principal); E66.9 Obesity, unspecified; R59.1 Generalized enlarged lymph nodes; R79.89 Other specified abnormal findings of blood chemistry
CPT/HCPCS: 36415; 80053; 84146; 85025

== ENCOUNTER → 2023-05-21 15:36 | Outpatient (CLI) | payer OTHER, SELFPAY ==
--- NOTE | 2023-05-21 15:37 | DI.MRI.S_ITS ---
PROCEDURE: MR BRAIN (PITUITARY) WWO CON INDICATIONS: hyperprolactinemia TECHNIQUE: Noncontrast sagittal and axial FLAIR, axial gradient echo, axial diffusion and ADC through the brain. Thin-slice sagittal and coronal T1 spin echo, coronal T2 fast spin echo through the pituitary. After the administration contrast, optional dynamic coronal T1 spin echo, thin-slice coronal and sagittal T1 spin echo images through the pituitary fossa; axial and coronal and sagittal T1 spin echo with fat saturation through the brain. COMPARISON: None. FINDINGS: Image quality: Excellent. Pituitary Gland: The pituitary gland is normal in size and appearance. No pituitary lesions are identified. The pituitary stalk is midline. CSF Spaces: Ventricles are normal in size and shape. Basal cisterns are patent. No extra-axial fluid collections. Brain: No intracranial bleeds or mass effects. No abnormal intracranial enhancement. Ledbetter-white matter interface is intact. Diffusion weighted images demonstrate no acute ischemic insults. Brainstem is normal. Normal intravascular flow voids are present. Skull and face: Calvarial marrow is normal in signal. Orbits appear normal. Sinuses: Diffuse paranasal sinus mucosal thickening, worse within the right maxillary sinus the mastoid air cells are clear.. IMPRESSION: 1. No pituitary adenomas are identified. The pituitary gland is normal in size and appearance. 2. No acute intracranial abnormalities. Dictated by: Zoran Veloz M.D. on 05/21/2023 at 16:58 Approved by: Zoran Veloz M.D. on 05/21/2023 at 17:01
== END ==
PROVIDERS: PCP Student in an Organized Health Care Education/Training Program; Referring Provider Student in an Organized Health Care Education/Training Program; Visit Provider Student in an Organized Health Care Education/Training Program
DX: R79.89 Other specified abnormal findings of blood chemistry (principal)
CPT/HCPCS: 70553; A9579

== ENCOUNTER → 2023-05-28 12:47 | Outpatient (CLI) | payer OTHER, SELFPAY ==
--- NOTE | 2023-05-28 | DI.MG.S_ITS ---
BILATERAL DIGITAL SCREENING MAMMOGRAM 3D/2D WITH CAD WITH AUGMENTATION: 05/28/2023 CLINICAL: Routine screening. Comparison is made to exams dated: 03/06/2022 mammogram, 04/20/2020 mammogram - [facility], and 09/13/2014 mammogram - [facility]. There are scattered areas of fibroglandular density in both breasts (category b / 25%-50% glandular tissue). Current study was also evaluated with a Computer Aided Detection (CAD) system. Bilateral breast implants are present. There are benign post operative findings in both breasts. No significant masses, calcifications, or other findings are seen in either breast. There has been no significant interval change. IMPRESSION: BENIGN There is no mammographic evidence of malignancy. A 1 year screening mammogram is recommended. Based on the Tyrer Cuzick model (a risk assessment model) the patient's lifetime risk is 10.8% and her 10 year risk is 1.7%. According to the ACR, ACS, and NCCN guidelines, an annual breast MRI exam along with mammogram is recommended if the patient's lifetime risk is 20% or greater. This exam was interpreted at Station ID: [id number]. NOTE: For mammograms, a report in lay terms will be sent to the patient. Approximately 15% of breast malignancies will not be visualized mammographically. In the management of a palpable breast mass, a negative mammogram must not discourage biopsy of a clinically suspicious lesion. Electronically Signed By: Juan Antonio rivera/genoveva:05/28/2023 14:55:35 letter sent: Normal Exam ACR BI-RADS Category 2: Benign Finding(s) 3342F
== END ==
PROVIDERS: PCP Student in an Organized Health Care Education/Training Program; Referring Provider Student in an Organized Health Care Education/Training Program; Visit Provider Student in an Organized Health Care Education/Training Program
DX: Z12.31 Encounter for screening mammogram for malignant neoplasm of breast (principal)
CPT/HCPCS: 77063; 77067

== ENCOUNTER → 2024-01-29 09:24 | Outpatient (CLI) | payer OTHER, SELFPAY ==
[2024-01-29 10:40] LABS: Add Manual Diff / Slide Review NO; Basophils Absolute Auto 0 /uL (0-100); Basophils Percent Auto 0.6 % (0-2); Eosinophils Absolute Auto 500 /uL (0-450); Eosinophils Percent Auto 6.5 % (2-4); Hemoglobin 11.9 g/dL (12.0-16.0); Lymphocytes Absolute Auto 2700 /uL (1100-4500); Lymphocytes Percent Auto 35.3 % (25-40); Mean Corpuscular Hemoglobin 28.1 PG (26-34); Monocytes Absolute Auto 300 /uL (0-900); Monocytes Percent Auto 4.4 % (3-14); Neutrophils Absolute Auto 4100 /uL (1500-7000); Neutrophils Percent Auto 53.2 % (50-75); Platelet Count 305 X10^3/uL (150-400); Red Blood Cell Count 4.24 X10^6/uL (4.0-5.2); Red Cell Distribution Width 13.5 % (11.6-14.8); White Blood Cell Count 7.6 X10^3/uL (4.5-11.0)
[2024-01-29 11:02] LABS: HEMOLYSIS < 15 (0-50)
[2024-01-29 11:07] LABS: Alanine Aminotransferase 12 IU/L (<35); Albumin 4.7 g/dL (3.5-5.0); Albumin Globulin Ratio 1.4 (1.0-2.8); Alkaline Phosphatase 72 U/L (38-126); Aspartate Aminotransferase 20 IU/L (14-36); BUN Creatinine Ratio 23.3 (6-22); Bilirubin Total 0.4 mg/dL (0.2-1.3); Blood Urea Nitrogen 20 mg/dL (7-17); Calcium 9.7 mg/dL (8.4-10.2); Carbon Dioxide 27 mmol/L (22-32); Chloride 105 mmol/L (98-107); Estimated Glomerular Filt Rate > 60 mL/min (>60); Globulin 3.3 g/dL (1.7-4.1); Glucose 101 mg/dL (70-100); Potassium 4.5 mmol/L (3.4-5.1); Sodium 138 mmol/L (137-145)
[2024-01-29 11:11] LABS: Hemoglobin A1C% w Est Avg Glu 5.1 % (4.0-6.0)
[2024-01-29 11:39] LABS: TSH w/ Reflex to FT4 1.74 uIU/mL (0.47-4.68)
[2024-01-29 11:51] LABS: Prolactin 38.3 ng/mL (3.0-18.6)
== END ==
LOC: LAB 09:25
PROVIDERS: PCP Student in an Organized Health Care Education/Training Program; Referring Provider Student in an Organized Health Care Education/Training Program; Visit Provider Student in an Organized Health Care Education/Training Program
DX: E03.9 Hypothyroidism, unspecified (principal); R79.89 Other specified abnormal findings of blood chemistry; E78.5 Hyperlipidemia, unspecified; R63.5 Abnormal weight gain; E66.9 Obesity, unspecified
CPT/HCPCS: 36415; 80053; 83036; 84146; 84443; 85025

== ENCOUNTER → 2024-09-23 08:07 | Outpatient (CLI) | payer BC, SELFPAY ==
[2024-09-23 09:05] LABS: Basophils Absolute Auto 0 /uL (0-100); Basophils Percent Auto 0.3 % (0-2); Eosinophils Absolute Auto 500 /uL (0-450); Eosinophils Percent Auto 7.2 % (2-4); Hemoglobin 11.9 g/dL (12.0-16.0); Lymphocytes Absolute Auto 2200 /uL (1100-4500); Mean Corpuscular HGB Conc 32.9 % (30-36); Mean Corpuscular Hemoglobin 27.7 PG (26-34); Mean Corpuscular Volume 84.2 fL (80-100); Monocytes Absolute Auto 400 /uL (0-900); Monocytes Percent Auto 5.8 % (3-14); Neutrophils Absolute Auto 4400 /uL (1500-7000); Neutrophils Percent Auto 57.7 % (50-75); Platelet Count 256 X10^3/uL (150-400); Red Blood Cell Count 4.28 X10^6/uL (4.0-5.2); Red Cell Distribution Width 13.3 % (11.6-14.8); White Blood Cell Count 7.6 X10^3/uL (4.5-11.0)
[2024-09-23 09:24] LABS: Add Manual Diff / Slide Review SLIDE REVIEW
[2024-09-23 09:55] LABS: BUN Creatinine Ratio 21.1 (6-22); Blood Urea Nitrogen 16 mg/dL (7-17); Cholesterol 242 mg/dL (140-199); Estimated Glomerular Filt Rate > 60 mL/min (>60); HDL Cholesterol 55 mg/dL (40-60); LDL Cholesterol Calculated 174 mg/dL (<100); Triglycerides 65 mg/dL (35-150)
[2024-09-23 10:59] LABS: RBC Morphology Normal Morphology
[2024-09-23 11:16] LABS: Creatinine Urine Random 54.26 mg/dL
[2024-09-23 11:22] LABS: Microalbumin Urine Random < 0.6 mg/dL (0-1.6)
== END ==
PROVIDERS: PCP Student in an Organized Health Care Education/Training Program; Referring Provider Student in an Organized Health Care Education/Training Program; Visit Provider Student in an Organized Health Care Education/Training Program
DX: I10 Essential (primary) hypertension (principal)
CPT/HCPCS: 36415; 80061; 82043; 82565; 82570; 84520; 85025

== ENCOUNTER → 2024-09-30 08:13 | Outpatient (CLI) | payer OTHER, BC, SELFPAY ==
[2024-09-30 09:42] LABS: Hemoglobin A1C% w Est Avg Glu 4.9 % (4.0-6.0)
[2024-09-30 09:49] LABS: Alanine Aminotransferase 16 IU/L (<35); Albumin 4.9 g/dL (3.5-5.0); Albumin Globulin Ratio 1.3 (1.0-2.8); Alkaline Phosphatase 63 U/L (38-126); Aspartate Aminotransferase 31 IU/L (14-36); BUN Creatinine Ratio 14.7 (6-22); Bilirubin Total 0.7 mg/dL (0.2-1.3); Blood Urea Nitrogen 11 mg/dL (7-17); Calcium 9.6 mg/dL (8.4-10.2); Carbon Dioxide 22 mmol/L (22-32); Chloride 102 mmol/L (98-107); Estimated Glomerular Filt Rate > 60 mL/min (>60); Globulin 3.9 g/dL (1.7-4.1); Glucose 117 mg/dL (70-100); Potassium 4.7 mmol/L (3.4-5.1); Sodium 135 mmol/L (137-145); Total Protein 8.8 g/dL (6.3-8.2)
[2024-09-30 09:51] LABS: HEMOLYSIS 52 (0-50)
[2024-09-30 09:53] LABS: HEMOLYSIS < 15 (0-50); Iron 102 ug/dL (37-170)
[2024-09-30 10:03] LABS: Percent Iron Saturation 29 % (15-50); Total Iron Binding Capacity 347 ug/dL (265-497); Transferrin 290 mg/dL (206-381)
[2024-09-30 10:04] LABS: Follicle Stimulating Hormone 1.73 mIU/mL
[2024-09-30 10:07] LABS: Free T3, Triiodothyronine Free 4.03 pg/mL (2.77-5.27); Free T4, Direct Thyroxine 0.92 ng/dL (0.78-2.19)
[2024-09-30 10:20] LABS: Thyroid Stimulating Hormone 2.66 uIU/mL (0.47-4.68)
[2024-09-30 10:22] LABS: Ferritin 52 ng/mL (6-137)
[2024-09-30 10:57] LABS: Folate 15.7 ng/mL (2.76-20.0); Vitamin B12 846 pg/mL (239-931)
== END ==
PROVIDERS: PCP Student in an Organized Health Care Education/Training Program; Referring Provider Student in an Organized Health Care Education/Training Program; Visit Provider Student in an Organized Health Care Education/Training Program
DX: N95.1 Menopausal and female climacteric states (principal)
CPT/HCPCS: 36415; 80053; 82607; 82728; 82746; 83001; 83036; 83540; 83550; 84439; 84443; 84481

== ENCOUNTER → 2024-10-28 07:49 | Outpatient (CLI) | payer BC, SELFPAY ==
[2024-10-28 09:52] LABS: Amylase 68 U/L (30-110); C-Reactive Protein Quant < 0.5 mg/dL (<1.0); Glucose 116 mg/dL (70-100); Lipase 180 U/L (23-300)
== END ==
LOC: LAB 07:51
PROVIDERS: PCP Student in an Organized Health Care Education/Training Program; Referring Provider Student in an Organized Health Care Education/Training Program; Visit Provider Student in an Organized Health Care Education/Training Program
DX: N95.1 Menopausal and female climacteric states (principal)
CPT/HCPCS: 36415; 82150; 82947; 83519; 83690; 86140

== ENCOUNTER 2024-12-21 10:27 | Day surgery (SDC) | payer BC, SELFPAY ==
--- NOTE | 2024-12-21 | PATH_ITS ---
[facility] Accession Number: [id number] No. of containers..01 Tissue . 01 Material submitted: . colon - DESCENDING POLYP . 01 Diagnosis: DESCENDING COLON POLYP: Hyperplastic polyp. MRV 12/27/2024 1403 Local . 01 Electronically signed: . Jason Chu MD, PhD, Pathologist NPI- [id number] . 01 Gross description: . DESCENDING POLYP: Received in formalin is 1 fragment(s) of fatima, soft tissue measuring 1.2 x 0.2 x 0.1 cm submitted entirely in 1 cassette(s) /JENNYFER 12/26/2024 0038 Local . 01 Pathologist provided ICD-10: K63.5 . 01 CPT . 086766 Specimen Comment: A courtesy copy of this report has been sent to [phone] Performed at: [address] [facility] [id number] MD Boubacar Anguiano MD Phone: [phone]
[2024-12-21 11:59] VITALS: BP 185/95; PULSE 75; RESP 100; TEMP 36.6; O2SAT 100
[2024-12-21] MEDS: LACTATED RINGERS 1,000 ML 42 ML IV (12:03)
--- NOTE | 2024-12-21 12:16 | PM.HP.IH.1 ---
History of Present Illness History of Present Illness Date Patient Seen: 12/21/24 Time Patient Seen: 12:16 Chief complaint: Colonoscopy Narrative: Nimisha is a 44-year-old woman here for a screening colonoscopy, her first. [facility] Medical History History of anemia History of asthma History of bipolar disorder History of gastric ulcer History of glaucoma History of scoliosis History of seasonal allergies Hypothyroidism Irritable bowel syndrome with constipation and diarrhea Personality disorder Shoulder pain Surgical History H/O bilateral breast reduction surgery (~2020) H/O thumb surgery (~2021) History of third molar tooth extraction Status post dilation and curettage Status post laparoscopy Family History Father Heart disease Hypertension Stroke Mother Age: 72 Anemia Grandmother Ovarian cancer Grandfather No problems noted. Grandmother Diabetes mellitus Grandfather No problems noted. Brother Diabetes mellitus Kidney failure Brother No problems noted. Brother No problems noted. Sister No problems noted. Sister No problems noted. Social History marital status: household members: spouse occupational status: employed Smoking Status: Former smoker alcohol intake: current substance use type: marijuana Meds Home Medications and Allergies Home Medications ?Medication ?Instructions ?Recorded ?Confirmed ?Type albuterol sulfate 90 mcg/actuation 2 puff inhalation Q4-6H #59.5 grams 02/01/24 12/21/24 Rx aerosol inhaler budesonide-formoterol HFA 80 2 puff inhalation BID PRN for 09/25/24 12/21/24 Rx mcg-4.5 mcg/actuation aerosol asthma #10.2 grams inhaler Allergies Allergy/AdvReac Type Severity Reaction Status Date / Time latex (LATEX) Allergy Mild Rash, Verified 12/21/24 11:41 hives, itching Penicillins (PENICILLINS) Allergy Mild Rash, Verified 12/21/24 11:41 hives, itching aspirin (ASPIRIN) AdvReac Intermediate GI Verified 12/21/24 11:41 Distress, pain tramadol AdvReac Intermediate Shortness Verified 12/21/24 11:41 of Breath Exam Vital Signs (past 8 hours): - 12/21/24 11:59 Temperature 97.9 F Pulse Rate 75 Respiratory Rate 100 H Blood Pressure 185/95 H Pulse Oximetry 100 Oxygen Delivery Method Room Air Oxygen Delivery Method Room Air Const General: healthy appearing Assessment & Plan Assessment and plan (1) Colon cancer screening: Status: Acute Plan Colonoscopy Time-Based Coding :: [TOTAL MINUTES] spent with patient and on the chart (including review of chart, obtaining history, exam, reviewing outside data, placing orders, documenting exam and treatment plan, and counseling patient) on [DATE]. [employer] Document charge(s): No
--- NOTE | 2024-12-21 12:50 | PM.OP.COLON ---
Operative Date/Time/Diagnoses Date of procedure: 12/21/24 Time of procedure: 12:50 Pre-op diagnosis: Colon cancer screening Post-op diagnosis: same Procedure & Clinicians Study performed: Colonoscopy Same procedure as scheduled: Yes Surgeon: Giancarlo Kearney Procedure Notes Procedure in detail: Surgeon: Giancarlo Kearney MD Anesthesia: Dorothea Moore CRNA Procedure: The patient was brought to the endoscopy suite, placed in left lateral decubitus position. The patient was connected to monitoring devices. A time-out was performed. Sedation was administered. Once the patient was adequately sedated, a digital rectal exam was performed and was normal. The scope was then inserted and advanced to the cecum where the appendiceal orifice was identified and photographed. The scope was then slowly withdrawn over greater than 6 minutes. The mucosa was thoroughly inspected. There was a diminutive polyp in the descending colon removed with a cold snare. The scope was retroflexed in the rectum. Internal hemorrhoids were noted. The scope was straightened and removed. The patient was awakened and brought to recovery. Scope withdrawal time: 8 minutes Sedation time: 13 minutes EBL: 2 mL Findings: Diminutive polyp in the descending colon Post-procedure Disposition: PACU
[2024-12-21 12:52] VITALS: BP 132/72; PULSE 74; RESP 12; TEMP 36.7; O2SAT 100
[2024-12-21 13:00] VITALS: BP 141/83; PULSE 71; RESP 15; TEMP 36.7; O2SAT 100
[2024-12-21 13:07] VITALS: BP 135/87; PULSE 76; RESP 15; TEMP 36.6; O2SAT 99
== END 2024-12-21 13:15 | disposition home or self-care (01) ==
PROVIDERS: PCP Student in an Organized Health Care Education/Training Program; Referring Provider Surgery; Visit Provider Surgery
PROC: 0DJD8ZZ Inspection of Lower Intestinal Tract, Via Natural or Artificial Opening Endoscopic (ICD-10-PCS; CPT 45378; principal; 2024-12-21 11:30)
DX: Z12.11 Encounter for screening for malignant neoplasm of colon (principal); K63.5 Polyp of colon
CPT/HCPCS: 45385; J2704